=== PATIENT | female | born 1950 | race Caucasian/White ===

== ENCOUNTER 2016-12-18 09:01 | Emergency (ER) | payer BC, MEDICARE ==
--- NOTE | 2016-12-18 09:41 | ER Document Report ---
ED GI/ - General Chief Complaint: Urinary Problem Stated Complaint: URINARY ISSUES Time Seen by Provider: 12/18/16 09:34 Mode of Arrival: Ambulatory Information source: Patient Notes: 66-year-old visitin female with metastatic appendiceal cancer is complaining that her nephrostomy tubes have not been draining for 6 days, they were exchanged out thursday 19. 9every [address]) [address]. Osman [phone] in [facility] knows about this problem- they have called him. Urinary stents changed every 2 months also. Daughter states that her mom was "little confused" this am and lower legs are more swollen. No fever or vomiting. Appetitie OK yesterday. PSH: urinary stents, nephrostomy tubes, colectomy, ileostomy. Last oral chemo was last thursday. No chest pain or SOB. No fever. TRAVEL OUTSIDE OF THE [place] IN LAST 30 DAYS: No - Related Data Allergies/Adverse Reactions: Iodinated Contrast- Oral and IV Dye Allergy (Verified 12/18/16 11:42) Past Medical History - General Information source: Patient - Social History Smoking Status: Unknown if Ever Smoked Frequency of alcohol use: None Drug Abuse: None Lives with: Family Family History: Reviewed & Not Pertinent - Medical History Notes: metastatic appediceal cancer Renal/ Medical History: Denies: Hx Peritoneal Dialysis Past Surgical History: Reports: Hx Bowel Surgery - colectomry-colostomy Other: nephrostomy tubes bilateral, bilateral urinary stents Review of Systems - Review of Systems Constitutional: See HPI EENT: No symptoms reported Cardiovascular: No symptoms reported Respiratory: No symptoms reported Gastrointestinal: No symptoms reported Genitourinary: See HPI Female Genitourinary: No symptoms reported Musculoskeletal: No symptoms reported Skin: No symptoms reported Hematologic/Lymphatic: No symptoms reported Neurological/Psychological: No symptoms reported Physical Exam - Vital signs Vitals: Resp Pulse Ox 20 100 12/18/16 11:34 12/18/16 11:34 Interpretation: Normal - General General appearance: Alert Notes: chronically ill appearing - HEENT Head: Normocephalic, Atraumatic Eyes: Normal Conjunctiva: Normal Pupils: PERRL Neck: Supple. No: Lymphadenopathy - Respiratory Respiratory status: No respiratory distress Chest status: Nontender Breath sounds: Normal Chest palpation: Normal - Cardiovascular Rhythm: Regular Heart sounds: Normal auscultation Murmur: No - Abdominal Inspection: Normal Distension: No distension Bowel sounds: Normal Tenderness: Nontender Organomegaly: No organomegaly - Back Back: Normal, Nontender Notes: loosned nephrostomy tube dressing on the left. neither tube is draning. - Extremities General upper extremity: Normal inspection, Nontender, Normal color, Normal ROM , Normal temperature General lower extremity: Normal inspection, Nontender, Normal color, Normal ROM , Normal temperature, Normal weight bearing. No: Kellie's sign - Neurological Neuro grossly intact: Yes Cognition: Normal Orientation: AAOx4 Marilee Coma Scale Eye Opening: Spontaneous [place] Coma Scale Verbal: Oriented [place] Coma Scale Motor: Obeys Commands Marilee Coma Scale Total: 15 Speech: Normal Motor strength normal: LUE, RUE, LLE, RLE Sensory: Normal - Psychological Associated symptoms: Normal affect, Normal mood - Skin Skin Temperature: Warm Skin Moisture: Dry Skin Color: Normal Course - Re-evaluation Re-evalutation: 12/18/16 11:25 We do not have a urologist donor relations manager who will need to manage her nonfunctioning nephrostomy tubes. I have started Rocephin IV fluid blood cultures and lactic acid were drawn. I called [facility] which is their choice for urology services 12/18/16 12:03 Dr. Cazares at [facility] will be the attending accepting the patient for hospitalist with urology consult. They are sending a truck at this time there is no bed assignment at this time. Third liter of normal saline ordered because a blood pressure systolic is 91 she is conscious, heart rate is 76. 12/18/16 12:07 dr. sloan has been consulted for the transfer. 12/18/16 12:36 some blood pressure to 88-90 systolic, after 2 liters 97 systolic, 3rd liter added and new IV left antecubital where the levophed drip will be started per dr sloan. 12/18/16 13:06 Spoke with the senior policy associate because the patient will now be going to [facility] and they will be sending helicopter. Systolic pressure went to 140 with the levophed so I have asked the nurse to taper it down since the senior policy associate was not convinced that she needed the Levophed 12/18/16 13:38 Patient takes hydrocodone 20 mg every 4 hours and feels like she is going through withdrawal Dilaudid 2 mg given IV, Ativan 1 mg IV because she takes that twice a day and another 0.5 mg of Dilaudid IV so she is comfortable for her ambulance ride. The blood pressure is 137 systolic, normal saline at 125 an hour. Pt is stable for transport - Vital Signs Vital signs: Temp Pulse Resp BP Pulse Ox 97.7 F 31 H 137/70 H 93 12/18/16 12:40 12/18/16 13:32 12/18/16 13:32 12/18/16 13:32 - Laboratory Result Diagrams: 12/18/16 09:55 12/18/16 09:55 Laboratory results interpreted by me: 12/18/16 12/18/16 12/18/16 09:55 09:55 10:22 WBC 22.9 H RBC 2.87 L Hgb 9.2 L Hct 27.6 L RDW 23.0 H Seg Neuts % (Manual) 87 H Lymphocytes % (Manual) 6 L Metamyelocytes % 1 H Abs Neuts (Manual) 20.8 H Sodium 128.1 L Carbon Dioxide 19 L BUN 43 H Creatinine 3.62 H Est GFR ( Amer) 15 L Est GFR (Non-Af Amer) 13 L Glucose 118 H Direct Bilirubin 0.5 H Urine Protein 100 H Urine Blood MODERATE H Ur Leukocyte Esterase MODERATE H - EKG Interpretation by Me EKG shows normal: Sinus rhythm Rhythm: Other - pac's Discharge - Discharge Clinical Impression: urosepsis, Dehydration, metastatic appendiceal cancer, non functioning nephrpstomy tubes Condition: Stable Disposition: [facility]
[2016-12-18 10:10] LABS: HEMATOCRIT 27.6 % (36.0-47.0); HEMOGLOBIN 9.2 g/dL (12.0-15.5); MEAN CORPUSCULAR HGB CONC 33.2 g/dL (32.0-36.0); MEAN CORPUSCULAR VOLUME 96 fl (80-97); RED BLOOD COUNT 2.87 10^6/uL (3.72-5.28); WHITE BLOOD COUNT 22.9 10^3/uL (4.0-10.5)
[2016-12-18 10:32] LABS: BAND NEUTROPHILS % (MANUAL) 3 % (3-5); BASOPHILS % (MANUAL) 0 % (0-2); EOSINOPHILS % (MANUAL) 0 % (0-6); LYMPHOCYTES % (MANUAL) 6 % (13-45); TOTAL CELLS COUNTED 100
[2016-12-18 10:38] LABS: ALANINE AMINOTRANSFERASE 25 U/L (9-52); ALBUMIN 3.5 g/dL (3.5-5.0); ALKALINE PHOSPHATASE 99 U/L (38-126); ANION GAP 11 (5-19); ASPARTATE AMINO TRANSFERASE 26 U/L (14-36); BILIRUBIN,DIRECT 0.5 mg/dL (0.0-0.4); BILIRUBIN,TOTAL 0.8 mg/dL (0.2-1.3); BLOOD UREA NITROGEN 43 mg/dL (7-20); CALCIUM 8.7 mg/dL (8.4-10.2); CARBON DIOXIDE 19 mmol/L (22-30); CHLORIDE 98 mmol/L (98-107); CREATININE RESULT 3.62 mg/dL (0.52-1.25); GLUCOSE 118 mg/dL (75-110); MAGNESIUM 1.8 mg/dL (1.6-2.3); POTASSIUM 4.1 mmol/L (3.6-5.0); SODIUM 128.1 mmol/L (137-145); TOTAL PROTEIN 6.5 g/dL (6.3-8.2)
[2016-12-18 10:39] LABS: ANISOCYTOSIS 2+; OVALOCYTES SLIGHT; POIKILOCYTOSIS SLIGHT; TOXIC GRANULATION SLIGHT
[2016-12-18 10:42] LABS: AMORPHOUS SEDIMENT,URINE TRACE /HPF; APPEARANCE,URINE TURBID; BILIRUBIN,URINE NEGATIVE (NEGATIVE); GLUCOSE, URINE NEGATIVE (NEGATIVE); KETONES,URINE NEGATIVE (NEGATIVE); LEUKOCYTE ESTERASE,URINE MODERATE (NEGATIVE); NITRITE,URINE NEGATIVE (NEGATIVE); PROTEIN,URINE 100 mg/dL (NEGATIVE); URINE SPECIFIC GRAVITY 1.012; UROBILINOGEN,URINE NEGATIVE mg/dL (<2.0)
[2016-12-18] MEDS ORDERED: NORMAL SALINE 1000 ML 1,000 ML IV ONE ×4 (10:59→13:39)
[2016-12-18] MEDS ORDERED: CEFTRIAXONE 1 GM/D5W RTU 1 GM/50 ML RTUPB IV SCH (11:00)
[2016-12-18] MEDS ORDERED: DEXTROSE 5%-WATER 250 ML with NOREPINEPHRINE BITARTRATE 4 MG IV PRN ×2 (12:26)
[2016-12-18] MEDS ORDERED: NOREPINEPHRINE BITARTRATE INJ/PF 4 MG/4 ML SDV IV ONE (12:31)
[2016-12-18] MEDS ORDERED: HYDROMORPHONE HCL INJ/PF 2 MG/ML AMPULE IV ONE ×3 (13:13→13:37)
[2016-12-18] MEDS ORDERED: ONDANSETRON HCL INJ/PF 4 MG/2 ML SDV IV ONE (13:34)
[2016-12-18] MEDS ORDERED: ONDANSETRON HCL INJ/PF 4 MG/2 ML SDV ONE (13:37)
[2016-12-18] MEDS ORDERED: LORAZEPAM INJ 2 MG/1 ML VIAL IV ONE (13:38)
[2016-12-18] MEDS ORDERED: LORAZEPAM INJ 2 MG/1 ML VIAL ONE (13:43)
[2016-12-18 13:50] VITALS: BP 137/70
--- NOTE | 2016-12-19 03:53 | EKG REPORT ---
SEVERITY:- OTHERWISE NORMAL ECG - SINUS RHYTHM ATRIAL PREMATURE COMPLEX : Confirmed by: Iman Tiwari MD 19-Dec-2016 03:53:28
== END 2016-12-18 13:49 | disposition short-term general hospital (02) ==
LOC: ER 09:01
DX: A41.89 Other specified sepsis (principal); C18.1 Malignant neoplasm of appendix; E86.0 Dehydration; T83.89XA Other specified complication of genitourinary prosthetic devices, implants and grafts, initial encounter; R39.198 Other difficulties with micturition; M79.89 Other specified soft tissue disorders
CPT/HCPCS: 93005; 99285; 96361; 96375; 96365; 96367; 36415; 87040; 87086; 83735; 85025; 87077; 87088; 80053; 81001; 87186; 83605; 93010; J3490; J1170; J2060; J2405; J7060; J7030; J0696